=== PATIENT | male | born 1970 | race Caucasian/White ===

== ENCOUNTER → 2016-07-17 | Outpatient (CLI) | payer MEDICARE, OTHER ==
[2016-07-16 14:50] VITALS: BMI 33.0
[2016-07-17 14:03] VITALS: BP 124/75; PULSE 67; RESP 16
--- NOTE | 2016-07-19 11:40 | P.CONS ---
History of Present Illness - Reason for Consult Consult date: 07/17/16 - History of Present Illness This is the initial consultation visit for this patient with a history of severe neck pain and low back pain, the low back pain and started almost 3 years ago, and it was severe to the degree that he had surgical intervention and he had lumbar laminectomy, he had no benefit from the surgery, he continued to have severe low back pain with radiation to the lower extremity associated with numbness and tingling sensation, mostly to the right lower extremity, he had difficulty walking,because of the intensity of the pain, denies any motor deficits, no sensory deficits, denies any change in the bowel movement or urination, no fever or night sweats, he reportes he had also severe neck pain with radiation to the upper extremity bilaterally associated with numbness and tingling sensation,, currently on multiple pain medications without any significant improvement of his pain, he denies any side effect of the medication , nonphysical therapy in the past without any significant benefit. Past Medical History Past Medical History: Asthma, GERD/Reflux, Hypertension, Osteoarthritis (OA) Additional Past Medical History / Comment(s): chronic neck and back pain History of Any Multi-Drug Resistant Organisms: None Reported Past Surgical History: Back Surgery Additional Past Surgical History / Comment(s): back surgery L2,L3,L4 laminectomy , reconstruction of kidney and reconstruction lt inner ear Past Anesthesia/Blood Transfusion Reactions: No Reported Reaction Past Psychological History: Anxiety Smoking Status: Current every day smoker Past Alcohol Use History: None Reported Additional Past Alcohol Use History / Comment(s): smoker since age 13- 1ppd Past Drug Use History: Marijuana Additional Drug Use History / Comment(s): daily marijuana - Past Family History Mother Family Medical History: No Reported History Medications and Allergies Home Medications Medication Instructions Recorded Confirmed Type ALPRAZolam [Xanax] 1 mg PO DAILY 03/22/14 07/17/16 History Atenolol [Tenormin] 50 mg PO BID 03/22/14 07/17/16 History Cyclobenzaprine [Flexeril] 5 mg PO HS PRN 03/22/14 07/17/16 History Ibuprofen [Motrin] 800 mg PO Q8HR PRN 03/22/14 07/17/16 History oxyCODONE-APAP 10-325MG [Percocet 1 each PO Q4-6H PRN 03/22/14 07/17/16 History 10-325] Albuterol Inhaler [Ventolin Hfa 1 - 2 puff INHALATION Q6HR PRN 07/16/16 History Inhaler] Aspirin [Adult Low Dose Aspirin EC] 81 mg PO DAILY 07/16/16 07/17/16 History Ergocalciferol (Vitamin D2) 50,000 unit PO FR 07/16/16 07/17/16 History [Vitamin D2] Fluticasone Nasal [place] [Flonase 1 spray EA NOSTRIL DAILY 07/16/16 07/17/16 History Nasal [place]] Omeprazole [PriLOSEC] 10 mg PO DAILY 07/16/16 07/17/16 History Polyethylene Glycol 3350 [Miralax] 17 gm PO DAILY 07/16/16 07/17/16 History Allergies Allergy/AdvReac Type Severity Reaction Status Date / Time No Known Allergies Allergy Verified 07/17/16 13:47 Physical Exam Social history : smoker , NO ETOH , use marijuana. Review of Systems : 1- Constitutional : no chills , no fever , no night sweats , 2- Ears : no ear discharge , no change in hearing 3-Nose, Mouth ,Throat ; no bleeding gums, no sore throat , no epistaxis , 4-Cardiovascular : Denies chest pain, , no orthopnea , no palpitation 5-Respiratory : Denies cough , no dyspnea , no hemoptysis 6-Gastrointestinal :, no change in bowel habits , no coffee- ground emesis . 7-Genitourinary : No hematuria , no discharge , no incontinence, 8-Musculoskeletal : Neck pain and upper extremity numbness, report low back pain , 9- Neurological : no ataxia , no tremor , no sezure , 10-Psychatric , no suicidal ideation no hallucination 11- Endocrine : no cold intolerence , no polyuria , no polydypsia , 12-Hematologic : no easy bleeding , no easy brusing , 13-Allergic / immunology : no angioedema , no wheezing ,no allergic rhinitis 14-Integumentary : no brttle nails , no change hair / nails , no foot/leg ulcers . Physical Examinations : 1-Constitutional : Cooperative , not in acute distress . 2-HEENT : nech ; supple , no Lymphadenopathy , no Thyromegaly , :eyes , no icterus, no photophobia . ENT : , normal oropharynx , no Thrush 3- Respiratory : Chest clear to auscultations Bilaterally , no wheezing . 4- Cardiovascular : regular rate and rhythem , S1 , S2 , no S3 , no S4. 5- Gastrointestinal: abdomen soft no tenderness , no organomegally . 6- Genitourinary : Defferred . 7-Integumentary : No cellulitis , no ulcers , normal skin turgor , no cyanotic . 8- neurologic : Cranial nerve II to XII intact , no focal neurological deffecit 9-psychatric : alert , oriented X 3 , appropriate affect , intact judgment and insight . 10-Lymphatic : no Lymphadenopathy. 11- musculoskeltal: normal gait Cervical Spine motor stregnth in the deltoid and biceps, normal right side , normal Left side motor stregnth biceps and the wrist extensors normal right side ,normal left side . motor stregnth in the triceps muscle . normal Right side , normal Left side deep tendon reflexes normal at the biceps , normal at Brachioradialis , normal at triceps. positive cervical facet loading test . Lumber spine moter stegnth lower extremities ,thigh and legs 5/5 Right side , 5/5 Left side deep tendon reflexes : normal Knee Jerk , normal ankle Jerk positive lumber facet Loading Test Range of motion of the lumbar spine Flexion 30 degrees, extension 10 degrees strait leg raising test , positive at 30 degree Fabere test positive RT and positive LT . Sever tenderness over the Sacroiliac joint on the R and L sides Results Comments: MRI of the cervical spine C5 6, C6 7 disc herniation MRI of the lumbar spine= lumbar laminectomy, lumbar facet arthropathy and lumbar degenerative disc disease Assessment and Plan Plan: Assessment and plan = - Chronic low back pain secondary to lumbar degenerative disc disease , lumbar spondylosis with facet arthropathy without myelopathy , failed back surgery syndrome lumbar a -Chronic neck pain secondary to cervical radiculopathy , cervical herniated disc disease - diagnoses, prognosis, and treatment options including but not limited to physical therapy, surgical interventions, interventional therapies and medication management including narcotics and adjuvant medication were discussed with the patient and all questions answered to the patient's satisfaction. -medication refile = patient getting prescription refills from his primary care , (reported that he tried Neurontin/Lyrica and the past without any benefit) -procedure= patient could benefit from caudal epidural steroid injections with lysis of epidural adhesions, ( this procedure to help his low back pain ). In the future we can consider doing cervical epidural steroid injections to help his neck pain and his upper extremity numbness . Time with Patient: Greater than 30
== END | disposition home or self-care (01) ==
LOC: PNWHC3 13:07
PROVIDERS: ATTEND Specialist
DX: M51.36 Other intervertebral disc degeneration, lumbar region (principal); M47.816 Spondylosis without myelopathy or radiculopathy, lumbar region; M46.86 Other specified inflammatory spondylopathies, lumbar region; K21.9 Gastro-esophageal reflux disease without esophagitis; I10 Essential (primary) hypertension; Z79.899 Other long term (current) drug therapy; F17.200 Nicotine dependence, unspecified, uncomplicated; Z79.82 Long term (current) use of aspirin; Z79.891 Long term (current) use of opiate analgesic
CPT/HCPCS: 99211

== ENCOUNTER 2016-08-06 08:20 | Day surgery (SDC) | payer MEDICARE, OTHER ==
[2016-07-30 16:39] VITALS: BMI 32.7
[~2016-08-06 08:20] MED LIST: LACTATED RINGERS 1,000 ML IV ONE
[2016-08-06 09:04] VITALS: TEMP 97.9
[2016-08-06] MEDS ORDERED: LIDOCAINE 1% INJ 10MG/ML (20 ML MDV) ONE (09:10)
[2016-08-06] MEDS ORDERED: IOHEXOL 180 MG/ML 1 ML ML ONE (09:10)
[2016-08-06] MEDS ORDERED: DEXAMETHASONE SOD PHOSPHATE 10 MG/ML 1 ML VIAL ONE (09:10)
--- NOTE | 2016-08-06 09:37 | P.PCN ---
Date of Procedure: 08/06/16 Preoperative Diagnosis: Postoperative Diagnosis: Procedure(s) Performed: PREOP DIAGNOSIS: 1- Lumbar postlaminectomy syndrome 2-lumbar spondylosis. 3- lumbar degenerative disc disease. 4-cervical herniated disc disease 5-cervical radiculopathy. POSTOP DIAGNOSIS: same as preoperative diagnoses. PROCEDURE: Caudal epidural steroid injection with epidurolysis and epidurogram under fluoroscopic guidance ANESTHESIA: Local with 0,5 % bupivacaine 5 ml. No IV sedations was given because patients had Coffee with Cream one hour before the procedure EBL: Minimal. PROCEDURE INDICATION: The patient with post-laminectomy syndrome with low back pain and radiculopathy radiating down in both legs, here for a caudal epidural steroid injection with epidurolysis. PROCEDURE DESCRIPTION: The patient was seen and identified in the preoperative area. Risks, benefits, complications, and alternatives were discussed with the patient. The patient agreed to proceed with the procedure and signed the consent , and vital signs were stable. Patient was taken to the OR and time out was completed. The patient was placed in the prone position on procedure table and a pillow was placed under the abdomen to reduce lumbar lordosis. The lumbosacral area was prepped and draped in the usual sterile fashion. Vital signs were closely monitored during the procedure. lateral view and the anterior-posterior plates of the sacrum were identified with infiltration of the area overlying the sacral hiatus with 1% lidocaine .A 17 gauge RK epidural needle was used to advance through the sacral hiatus into the caudal epidural space. Omnipaque 180 dye. 2cc was injected and the position of the needle was verified to be in the midline. A Racz catheter was introduced into the epidural space and was advanced towards the L5-S1 interspace under direct fluoroscopic guidance. Multiple passes were made with the catheter for lysis of epidural adhesions. Dexamethasone 20 mg with 3ml of preservative free Lidocaine 1% and 5 ml of preservative free normal saline was injected slowly. Additional spread was seen to L5 under fluoroscopy. The needle and the catheter were withdrawn intact. EPIDUROGRAM: Omnipaque 180 mg dye 2 ml was injected with spread of the dye into the caudal epidural space and with spread cutoff at L5 prior to epidurolysis. Post epidurolysis dye 2 ml was injected and spread was seen to L4- 5 .There was further spread of the solution together with the dye above the L4 COMPLICATIONS: None. DISPOSITION / PLANS: The patient was placed in a supine position and transferred to the recovery area in a stable condition for observation and was discharged from the recovery room after meeting discharge criteria. Home discharge instructions given to the patient by the staff. The patient was reexamined prior to discharge. The patient will schedule a follow up in the clinic in 2-4 weeks. Implants: Indications for Procedure: Operative Findings: Description of Procedure:
[2016-08-06 09:39] VITALS: RESP 16
[2016-08-06 09:46] VITALS: BP 141/82; PULSE 57
--- NOTE | 2016-08-06 11:52 | FL ---
Fluoroscopy HISTORY: Pain 12 seconds fluoroscopy time supplied to the referring clinician. 3 intraoperative C-arm images docum ent the procedure. See dictated report from anesthesia.
== END 2016-08-06 09:55 | disposition home or self-care (01) ==
LOC: ORPAIN 08:20
PROVIDERS: ATTEND Specialist
DX: M96.1 Postlaminectomy syndrome, not elsewhere classified (principal); M51.16 Intervertebral disc disorders with radiculopathy, lumbar region; M50.10 Cervical disc disorder with radiculopathy, unspecified cervical region
CPT/HCPCS: 62264; J1100; Q9965; J2001

== ENCOUNTER 2016-09-03 06:34 | Day surgery (SDC) | payer MEDICARE, OTHER ==
[2016-08-30 09:31] VITALS: BMI 32.5
[2016-09-03 07:02] VITALS: TEMP 98.1
[2016-09-03] MEDS ORDERED: LACTATED RINGERS 1,000 ML IV ONE (07:07)
[2016-09-03] MEDS ORDERED: LIDOCAINE 1% 20 ML VIAL (10MG/ML) FOR IV START INTRADERMA ONE (07:08)
[2016-09-03] MEDS ORDERED: DEXAMETHASONE SOD PHOS (MDV) 100 MG/10 ML VIAL ONE (07:56)
[2016-09-03] MEDS ORDERED: fentaNYL (PF) 50 MCG/ML 2 ML AMP ONE (07:56)
[2016-09-03] MEDS ORDERED: MIDAZOLAM 2 MG/2 ML VIAL ONE (07:56)
[2016-09-03] MEDS ORDERED: IOHEXOL 180 MG/ML 1 ML ML ONE (07:56)
[2016-09-03] MEDS ORDERED: LACTATED RINGERS 1,000 ML IV SCH (08:00)
[2016-09-03 08:19] VITALS: RESP 20
--- NOTE | 2016-09-03 08:19 | P.PCN ---
Date of Procedure: 09/03/16 Preoperative Diagnosis: Postoperative Diagnosis: Procedure(s) Performed: Implants: Surgeon: Jani Marsh Pathology: none sent Condition: stable Disposition: PACU Indications for Procedure: Operative Findings: Description of Procedure: PREOPERATIVE DIAGNOSIS: Lumbar post laminectomy syndrome. POSTOPERATIVE DIAGNOSIS: Lumbar post laminectomy syndrome. PROCEDURE: 1. Caudal epidural steroid injection under fluoroscopic guidance. 2. Caudal epidurogram. ANESTHESIA: Local with 1% lidocaine; IV sedation with Versed/fentanyl EBL: None. PROCEDURE INDICATION: This is a patient with postlaminectomy syndrome with uncontrolled pain had caudal CAMACHO with lysis of adhesions with only two days' pain relief and severe pain after. Today he is scheduled for caudal CAMACHO. No use of blood thinners. PROCEDURE DESCRIPTION: The patient was seen and identified in the preoperative area. Risks, benefits, complications, and alternatives were discussed with the patient including but not limited to bleeding, infection, nerve damage, incomplete pain relief, and allergic reactions to medications. The patient agreed to proceed with the procedure and signed the consent after all questions were answered. IV was started, and vital signs were stable. Patient was taken to the OR and time out was completed. The patient was placed in the prone position on procedure table and a pillow was placed under the abdomen to reduce lumbar lordosis. The lumbosacral area was prepped and draped in the usual sterile fashion. Vital signs were closely monitored during the procedure. Using lateral fluoroscopy the anterior-posterior plates of the sacrum were identified and the skin and deeper tissues corresponding into sacrococcygeal ligament were anesthetized using approximately 3 mL of 1% lidocaine. Then under fluoroscopy, a 3-1/2-inch 20-gauge Tuohy epidural needle was guided through the sacrococcygeal ligament, and into the epidural space. After negative aspiration , a 1 mL of omnipaque-300 contrast dye was injected with excellent epidurogram. Again after negative aspiration for CSF, blood, and with no paresthesias, a solution containing Decadron 20mg, 2ml of 1% preservative free lidocaine with 6 ml of preservative free normal saline (total of 10 ml) solution was injected with washout of epidurogram. Needle was withdrawn intact. Skin was cleansed, and bandage was applied. COMPLICATIONS: None. COMMENTS: DISPOSITION / PLANS: The patient was placed in a supine position and transferred to the recovery area in a stable condition for observation and was discharged from the recovery room after meeting discharge criteria. Home discharge instructions given to the patient by the staff. The patient was reexamined prior to discharge. The patient will schedule a follow up in the clinic in 4-6 weeks after he sees Dr. Villegas, as MRI from 12/2015 does demonstrate a new L3-L4 disc herniation and his last back surgery was in 2012.
--- NOTE | 2016-09-03 08:22 | FL ---
FLUOROSCOPY 5 seconds of fluoroscopy time were utilized during Pain Injection. 3 images document the procedure.
[2016-09-03 08:35] VITALS: BP 145/93; PULSE 71
[2016-09-03] MEDS ORDERED: IV FLUID CONTINUATION 1,000 ML IV ONE (08:35)
== END 2016-09-03 08:41 | disposition home or self-care (01) ==
LOC: ORPAIN 06:34
PROVIDERS: ATTEND Anesthesiology
DX: M96.1 Postlaminectomy syndrome, not elsewhere classified (principal); M54.5 Low back pain
CPT/HCPCS: 99152; 62323; J2250; Q9965; J3010; J1100; 62264